=== PATIENT | female | born 1985 | race Two or more races ===

== ENCOUNTER 2020-05-28 14:26 | Outpatient (REF) | payer OTHER, SELFPAY ==
[2020-05-28 14:44] LABS: COVID-19 Test Negative (Negative)
== END 2020-05-28 14:27 | disposition home or self-care (01) ==
LOC: HO.EMPCOV 14:26
PROVIDERS: PCP Internal Medicine; Visit Provider Internal Medicine
DX: Z20.822 Contact with and (suspected) exposure to COVID-19 (principal)
CPT/HCPCS: 36415; 87635; C9803

== ENCOUNTER 2020-07-24 07:57 | Outpatient (REF) | payer OTHER, SELFPAY ==
[2020-07-24 08:15] LABS: COVID-19 Test Negative (Negative)
== END 2020-07-24 07:58 | disposition home or self-care (01) ==
LOC: HO.EMPCOV 07:57
PROVIDERS: Visit Provider Internal Medicine
DX: Z20.822 Contact with and (suspected) exposure to COVID-19 (principal)
CPT/HCPCS: 36415; 87635; C9803

== ENCOUNTER 2021-05-05 11:00 | Outpatient (REF) | payer OTHER, SELFPAY ==
[2021-05-05 12:05] LABS: COVID-19 Test Positive (Negative)
== END 2021-05-05 11:01 | disposition home or self-care (01) ==
LOC: HO.LAB 11:00
PROVIDERS: Visit Provider Internal Medicine
DX: Z20.822 Contact with and (suspected) exposure to COVID-19 (principal)
CPT/HCPCS: 36415; 87635; C9803

== ENCOUNTER → 2021-07-17 08:17 | Outpatient (BNVA) | payer OTHER, SELFPAY | PROVIDERS: PCP Pediatrics; Visit Provider Advanced Practice Midwife | DX: N92.6 Irregular menstruation, unspecified (principal) | CPT/HCPCS: 99202 ==

== ENCOUNTER 2022-03-05 15:01 | Outpatient (REF) | payer OTHER, SELFPAY ==
[2022-03-06 12:17] LABS: Influenza A PCR NEGATIVE (Negative); Influenza B PCR NEGATIVE (Negative); Resp Syncy Virus RNA Qual PCR NEGATIVE (Negative); SARS COV2 PCR INHOUSE NEGATIVE (Negative)
== END 2022-03-05 15:02 | disposition home or self-care (01) ==
LOC: HO.LAB 15:01
PROVIDERS: Visit Provider Family Medicine
DX: Z20.822 Contact with and (suspected) exposure to COVID-19 (principal); R05.9 Cough, unspecified
CPT/HCPCS: 0241U

== ENCOUNTER → 2022-04-21 08:02 | Outpatient (BNVA) | payer OTHER, SELFPAY | PROVIDERS: Visit Provider Advanced Practice Midwife | DX: Z13.89 Encounter for screening for other disorder (principal) ==

== ENCOUNTER 2022-10-28 10:54 | Outpatient (REF) | payer OTHER, SELFPAY | END 2022-10-28 10:55 | disposition home or self-care (01) | LOC: HO.LAB 10:54 | PROVIDERS: Visit Provider Advanced Practice Midwife | DX: N89.8 Other specified noninflammatory disorders of vagina (principal); Z20.2 Contact with and (suspected) exposure to infections with a predominantly sexual mode of transmission | CPT/HCPCS: 99212 ==

== ENCOUNTER 2022-10-28 11:54 | Outpatient (REF) | payer OTHER, SELFPAY ==
[2022-10-28 16:21] LABS: CT PCR NOT DETECTED (Not Detect.); NG PCR NOT DETECTED (Not Detect.)
[2022-10-29 12:53] LABS: BV Int Neg Control Negative (Negative); BV Int Pos Control Positive (Positive)
== END 2022-10-28 11:55 | disposition home or self-care (01) ==
LOC: HO.LNP 11:54
PROVIDERS: Visit Provider Advanced Practice Midwife
DX: Z20.2 Contact with and (suspected) exposure to infections with a predominantly sexual mode of transmission (principal)
CPT/HCPCS: 0353U; 87480; 87510; 87660

== ENCOUNTER 2022-11-04 11:16 | Outpatient (REF) | payer OTHER, SELFPAY ==
[2022-11-04 14:14] LABS: Syphilis Screen Nonreactive (Nonreactive)
[2022-11-06 08:43] LABS: HBsAGNum1 0.51 S/CO (0.00-0.99); HIV AB/AG Nonreactive (Nonreactive); HIV Num 1 0.05 S/CO (0.00-0.99); Hepatitis B Surface Antigen Negative (Negative); ~HepC Num1 0.13 S/CO (0.00-0.79); ~Hepatitis C Antibody Nonreactive (Nonreactive)
== END 2022-11-04 11:17 | disposition home or self-care (01) ==
LOC: HO.10HDL 11:16
PROVIDERS: Visit Provider Advanced Practice Midwife
DX: Z11.3 Encounter for screening for infections with a predominantly sexual mode of transmission (principal)
CPT/HCPCS: 36415; 86780; 86803; 87340; 87389

== ENCOUNTER 2023-07-20 09:45 | Outpatient (AMB) | payer OTHER, SELFPAY ==
[2023-07-20 09:51] VITALS: BP 118/64; BMI 28.1
--- NOTE | 2023-07-20 09:51 | A.OFFVIS_ITS ---
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 She had an Essure placed after all her kids were born at [facility] but she feels like she has been having lots of problems ever since then most especially soon after the placement and she just would like to have those springs removed and have her tubes tied and removed. She has not worried about STDs this year but she would like to get checked she has been with this partner now for 9 months. She thought she had had a Pap smear at the last visit however previous Paps in the last decade were done at [facility] and the last 1 in our system is 2010. Her last period was June 28. [facility] Medical History Varicose vein of leg Acne Hirsutism Encounter for Essure implantation Tremor Scoliosis Asthma Family History Paternal Grandmother Breast CA Maternal Uncle Colon cancer Mother Hyperlipidemia HTN (hypertension) Father Prostate cancer HTN (hypertension) Social History (Updated 07/20/23 @ 09:58 by Micaela Woods MA) Household Members: Significant Other and Children Housing: Apartment Alcohol intake: current Alcohol intake frequency: holidays/special occasions only Patient Tobacco Use Status: Former Tobacco user e-Cigarette/Vaping Use: Currently Using Current occupational status: employed 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 Sexual orientation: Straight/Heterosexual Gender identity: Female Female Reproductive History Menstrual Age of Menarche: 12 Duration of menses: 6-7 days Date of last menstrual period: 06/28/23 control method: none Total pregnancies: 3 Full term: 3 Number of Living Children: 3 Date of last pap smear: 05/13/10 Physical Exam Vital Signs: Last Vital Signs BP 118/64 07/20/23 09:51 BMI result Body Mass Index 28.1 Const General: healthy appearing, comfortable, no acute distress, well developed and alert Nutritional Appearance: average body habitus Orientation/consciousness: patient oriented x3 Limitations: no limitations HEENT Head: Yes normocephalic Neck Neck: Yes normal visual inspection Chest Chest palpation & inspection: normal inspection of the chest Breast/axilla inspection: normal inspection of the breasts and normal inspection of the axillae Breast/axilla palpation: normal palpation of the breasts and normal palpation of the axillae Resp Effort & Inspection: normal respiratory effort GI Inspection: Yes normal to inspection, No Abdominal wall edema and No distended Palpation (GI): Soft to palpation and nontender Other: Vagina pink and moist normal clear discharge vagina multiparous cervix pink smooth mobile nontender and anteverted mobile nontender uterus adnexa nontender not enlarged fair tone with Kegel coached in doing Kegel's. General: Yes bladder normal to palpation External Female Exam: normal external appearance and normal appearance of the urethra Speculum Exam - Vagina: normal appearance of the vagina, normal palpation and normal vaginal discharge Speculum Exam - Cervix: normal appearance of the cervix, normal palpation and nontender Bimanual exam- vagina & uterus: normal bimanual exam, normal palpation, uterine size normal, bladder normal to palpation, consistency normal, normal palpation, uterine mobility normal, uterine shape normal, No Cervical tenderness present, non-tender and no cervical motion tenderness Bimanual Exam- Adnexa, other: normal adnexae, no masses, normal and No adnexal tenderness Neuro General: patient oriented x3 Assessment & Plan Assessment & Plan (1) Screen for sexually transmitted diseases: Code(s): Z11.3 - Encounter for screening for infections with a predominantly sexual mode of transmission (2) Encounter for Essure implantation: Comment: Patient says it was done at [facility] sometime after the of her 14-year-old, and after the Mirena and after the Implanon... Code(s): Z30.2 - Encounter for sterilization (3) Well woman exam with routine gynecological exam: Code(s): Z01.419 - Encounter for gynecological examination (general) (routine) without abnormal findings (4) Cervical cancer screening: Code(s): Z12.4 - Encounter for screening for malignant neoplasm of cervix (5) Uses contraceptive implants for control: Comment: Isamar, desires salpingectomy and removal of essure. Code(s): Z78.9 - Other specified health status Plan -----Discussed in this visit the following: healthy balanced diet, regular and consistent exercise, getting recommended health screens, doing the best she can for her particular health concerns, kegel exercises, pap smear screening and followup recommendations, mammography screening and SBE, normal changes in cycles in her life stage--- .------discussed her concerns re her essure. pt to have a consultation w dr Barry re salpingectomy. rtc 1 yr kegels encouraged as well as exercise. she is trying to find a pcc but needs to change her insurance. Orders: Orders Bacterial Vaginosis Panel Today Z01.419 - Encounter for gynecological examination (general) (routine) without abnormal findings CT NG by PCR Today Z01.419 - Encounter for gynecological examination (general) (routine) without abnormal findings Pap Smear Today Z01.419 - Encounter for gynecological examination (general) (routine) without abnormal findings Coding Level of Care Code Est Pt Prev Care 18-39y(22510) Diagnoses Screen for sexually transmitted diseases Z11.3 Encounter for Essure implantation Z30.2 Well woman exam with routine gynecological exam Z01.419 Cervical cancer screening Z12.4 Uses contraceptive implants for control Z78.9
== END 2023-07-20 10:50 | disposition home or self-care (01) ==
LOC: HO.HWS 09:45
PROVIDERS: Visit Provider Advanced Practice Midwife
DX: Z01.419 Encounter for gynecological examination (general) (routine) without abnormal findings (principal)
CPT/HCPCS: 99395

== ENCOUNTER 2023-07-20 09:45 | Outpatient (REF) | payer OTHER, SELFPAY ==
[2023-07-21 11:26] LABS: CT PCR NOT DETECTED (Not Detect.); NG PCR NOT DETECTED (Not Detect.)
[2023-07-21 13:53] LABS: BV Int Neg Control Negative (Negative)
[2023-07-21 13:54] LABS: BV Int Pos Control Positive (Positive)
[2023-07-28 06:39] LABS: HPV mRNA E6/E7 rflx Not Detected (Not Detected)
== END 2023-07-20 09:46 | disposition home or self-care (01) ==
LOC: HO.LNP 09:45
PROVIDERS: Visit Provider Advanced Practice Midwife
DX: Z01.419 Encounter for gynecological examination (general) (routine) without abnormal findings (principal); Z11.3 Encounter for screening for infections with a predominantly sexual mode of transmission; Z78.9 Other specified health status
CPT/HCPCS: 0353U; 87480; 87510; 87624; 87660; 88142; 99395

== ENCOUNTER 2023-08-30 09:42 | Outpatient (AMB) | payer OTHER, SELFPAY ==
--- NOTE | 2023-08-30 09:45 | MHC.OFFVIS ---
Vital Signs 08/30/23 09:46 Height 5 ft 4 in Weight 160 lb BMI 27.5 Intake Visit Reasons: Tubal Consult Intake Note: Patient here for tubal ligation consult. Patient have 3 children Regulatory And Compliance Technician Required: No Information Interpreted: non-clinical & clinical Accompanied by: Self / Same As Patient Allergies No Known Allergies Allergy (Mild, Verified 08/30/23 09:49) NOT APPLICABLE Is last menstrual period known: Yes Last menstrual period: 08/26/23 HPI Comments Details: Presenting referred from Virgie Eason CNM regarding consultation for Essure removal. The patient had Essure inserted 15 years ago and would like it out because of lot of side effects. 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 Sexual orientation: Straight/Heterosexual Gender identity: Female Female Reproductive History Menstrual Age of Menarche: 12 Date of last menstrual period: 08/26/23 Total pregnancies: 3 Full term: 3 Number of Living Children: 3 Review of Systems Const All systems reviewed & are unremarkable except as noted in HPI and below Reports as per HPI and Reports no additional complaints GI Reports no additional complaints Reports no additional complaints Physical Exam Vital Signs: BMI result Body Mass Index 27.5 Assessment & Plan Assessment & Plan (1) Encounter for removal of Essure: Code(s): Z45.89 - Encounter for adjustment and management of other implanted devices Category: Medical Plan: Discussed with the patient at Essure was pulled out of the marked because of its complication, Essure removal can be done hysteroscopically but could be challenging because of the fibrosis around the cause it will make it difficult to visualize hysteroscopically and are more likely to fracture, another approach is laparoscopic with concomitant salpingectomies to maintain the patient has desired permanent contraception, or salpingostomy with coil extraction, cornuectomy or hysterectomy. Recommended for the patient to seek a 2nd opinion at a tertiary care center where more resources are available and gynecologists with expertise in Essure removal are available. Offered the patient a referral to [facility], the patient would like to call herself for an appointment. All questions answered, the patient verbalized understanding. Instructed the patient to call our office back in case she cannot get in for an appointment so that we will assist in scheduling an appointment, the patient verbalized understanding agreed with the plan. Coding Level of Care Code Est Pt Level 3 (78388) Diagnoses Encounter for removal of Essure Z45.89
[2023-08-30 09:46] VITALS: BMI 27.5
== END 2023-08-30 13:04 | disposition home or self-care (01) ==
PROVIDERS: Visit Provider Obstetrics & Gynecology
DX: Z45.89 Encounter for adjustment and management of other implanted devices (principal)
CPT/HCPCS: 99213

== ENCOUNTER → 2023-08-30 09:42 | Outpatient (BNVA) | payer OTHER, SELFPAY | PROVIDERS: Visit Provider Obstetrics & Gynecology | DX: Z45.89 Encounter for adjustment and management of other implanted devices (principal); Z71.89 Other specified counseling | CPT/HCPCS: 99212 ==

== ENCOUNTER 2024-01-20 13:24 | Outpatient (AMB) | payer OTHER, SELFPAY ==
--- NOTE | 2024-01-20 13:28 | A.OFFVIS_ITS ---
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 He strayed. 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 External Female Exam: normal external appearance and normal appearance of the urethra Speculum Exam - Vagina: normal appearance of the vagina and normal vaginal discharge Speculum Exam - Cervix: normal appearance of the cervix and Cervical os closed Results Reviewed Results Reviewed: Name: Ruben Solano Age/Sex: 38/F Attending: Marybel Eason CNM : 1985 Submitted by: Marybel Eason CNM Copies to: MR #: [id number] Status: DEP REF Collected: 07/20/23 Location: AIDE Received: 07/22/23 Interpretation Satisfactory for evaluation. Moderate inflammation. Negative for intraepithelial lesion or malignancy. HPV mRNA E6/E7: NOT DETECTED This assay detects E6/E7 viral messenger RNA (mRNA) from 14 high-risk HPV types (16, 18, 31, 33, 35, 39, 45, 51, 52, 56, 58, 59, 66, 68) HPV testing performed by [facility], [place], [place]. See reference labor atory portion of the EMR for entire report. Clinical Information LMP: 06/28/23 Previous PAP test: 05/13/10, WNL Material Received ThinPrep-Cervical Electronically Signed By: FRANCISCO Fuller (ASCP) 08/02/23 1316 The Pap Test is a screening procedure with the inherent possibility of both false negative and false positive results. Results should be interpreted in the context of historic and current clinical findings. Reliability of the Pap Test is enhanced by performing the test on a regular repetitive basis. Patient: Ruben Solano Age/Sex: 38/F MR#: [id number] Page 1 of 1 Assessment & Plan Assessment & Plan (1) Screen for sexually transmitted diseases: Code(s): Z11.3 - Encounter for screening for infections with a predominantly sexual mode of transmission Category: Medical (2) Cervical cancer screening: Comment: 07/20/2023 Pap is negative with negative HPV. Code(s): Z12.4 - Encounter for screening for malignant neoplasm of cervix Category: Medical (3) Uses contraceptive implants for control: Comment: Essure, desires salpingectomy and removal of essure. Code(s): Z78.9 - Other specified health status Category: Social Hx Plan Testing done for STIs as requested lab orders placed so she had her lab and get the others information about portal given so she can get online and look up her information but we would call her for anything positive. I also reviewed with her her cycle in detail and signs and symptoms of ovulation her previous LMP was December 12 and then she got her last period on January 10 which made that is cycle 30 days today during the exam as I was removing the speculum clear fertile type mucus started flown from the cervical os today's day 9 of this cycle Education done about signs and symptoms of ovulation and the other changes that occur within the cycle. Given that she is planning to have the Essure removed either laparoscopically or via laparotomy on March 06 at [facility] via [facility] then fertility is not her concern she is going to be having salpingectomy at the same time. However this was for educational purposes additionally because her described symptoms that she has noticed since she had the Essure placed involve hormonal changes and cramping at various times it may or may not be resolved when she has the Essure removed so some discussion about that took place as well. Labs to be done when she goes to the lab we will see her when she needs to be seen. Last Pap smear was negative in July. Orders: Orders CT NG by PCR Today Z11.3 - Encounter for screening for infections with a predominantly sexual mode of transmission Hepatitis B Surface Antigen Today Z11.3 - Encounter for screening for infections with a predominantly sexual mode of transmission, Z12.4 - Encounter for screening for malignant neoplasm of cervix, Z78.9 - Other specified health status Hepatitis C Antibody Today Z11.3 - Encounter for screening for infections with a predominantly sexual mode of transmission, Z12.4 - Encounter for screening for malignant neoplasm of cervix, Z78.9 - Other specified health status Bacterial Vaginosis Panel Today Z11.3 - Encounter for screening for infections with a predominantly sexual mode of transmission HIV Ab/Ag Today Z11.3 - Encounter for screening for infections with a predominantly sexual mode of transmission, Z12.4 - Encounter for screening for malignant neoplasm of cervix, Z78.9 - Other specified health status Syphilis Screen Today Z11.3 - Encounter for screening for infections with a predominantly sexual mode of transmission, Z12.4 - Encounter for screening for malignant neoplasm of cervix, Z78.9 - Other specified health status Coding Level of Care Code Est Pt Level 3 (78211) Diagnoses Screen for sexually transmitted diseases Z11.3 Cervical cancer screening Z12.4 Uses contraceptive implants for control Z78.9
[2024-01-20 13:35] VITALS: BP 126/62; BMI 30.6
== END 2024-01-20 14:06 | disposition home or self-care (01) ==
PROVIDERS: Visit Provider Advanced Practice Midwife
DX: Z11.3 Encounter for screening for infections with a predominantly sexual mode of transmission (principal); Z12.4 Encounter for screening for malignant neoplasm of cervix; Z78.9 Other specified health status
CPT/HCPCS: 99213

== ENCOUNTER 2024-01-20 13:24 | Outpatient (REF) | payer OTHER, SELFPAY ==
[2024-01-21 14:21] LABS: Bacterial Vaginosis PCR NEGATIVE (Negative); Candida Group PCR NOT DETECTED (Not Detect); Candida glab krusei PCR NOT DETECTED (Not Detect); Trichomonas vaginalis PCR NOT DETECTED (Not Detect)
== END 2024-01-20 13:25 | disposition home or self-care (01) ==
LOC: HO.LNP 13:24
PROVIDERS: Visit Provider Advanced Practice Midwife
DX: Z11.3 Encounter for screening for infections with a predominantly sexual mode of transmission (principal); Z12.4 Encounter for screening for malignant neoplasm of cervix
CPT/HCPCS: 0352U; 99212

== ENCOUNTER 2024-01-20 14:30 | Outpatient (REF) | payer OTHER, SELFPAY ==
[2024-01-21 08:15] LABS: Syphilis Screen Nonreactive (Nonreactive)
[2024-01-21 09:01] LABS: HBsAGNum1 0.33 S/CO (0.00-0.99); HIV AB/AG Nonreactive (Nonreactive); HIV Num 1 0.04 S/CO (0.00-0.99); Hepatitis B Surface Antigen Negative (Negative); ~Hepatitis C Antibody Nonreactive (Nonreactive)
[2024-01-21 12:15] LABS: CT PCR NOT DETECTED (Not Detect.); NG PCR NOT DETECTED (Not Detect.)
== END 2024-01-20 14:31 | disposition home or self-care (01) ==
LOC: HO.HHCL 14:30
PROVIDERS: Visit Provider Advanced Practice Midwife
DX: Z11.3 Encounter for screening for infections with a predominantly sexual mode of transmission (principal); Z78.9 Other specified health status; Z12.4 Encounter for screening for malignant neoplasm of cervix
CPT/HCPCS: 36415; 86780; 86803; 87340; 87389; 87491; 87591

== ENCOUNTER 2024-03-24 09:13 | Outpatient (REF) | payer OTHER, SELFPAY ==
[2024-03-24 09:47] LABS: MANUAL DIFF FLAG NO
[2024-03-24 10:36] LABS: Basophils Absolute Auto 0.1 X10*3/uL (0.0-0.2); Basophils Percent Auto 0.8 % (0-2); Eosinophils Absolute Auto 0.1 X10*3/uL (0.0-0.4); Eosinophils Percent Auto 1.5 % (0-4); Hematocrit 39.2 % (37.0-47.0); Hemoglobin 12.8 g/dl (12.0-16.0); Imm Gran Abs Auto 0.02 X10*3/uL (0.00-0.03); Imm Gran Pct Auto 0.3 % (0.0-0.4); Lymphocytes Absolute Auto 1.6 X10*3/uL (1.2-4.9); Lymphocytes Percent Auto 23.8 % (20-40); Mean Corpuscular HGB Conc 32.7 g/dl (31.0-35.0); Mean Corpuscular Hemoglobin 30.5 pg (27.0-33.0); Mean Corpuscular Volume 93.6 fL (80.0-98.0); Mean Platelet Volume 10.8 fL (9.4-12.3); Monocytes Absolute Auto 0.6 X10*3/uL (0.1-1.2); Monocytes Percent Auto 8.3 % (2-11); Neutrophils Absolute Auto 4.3 x10*3/uL (2.0-8.3); Neutrophils Percent Auto 65.3 % (45-73); Platelet Count 272 X10*3/uL (160-400); Red Blood Count 4.19 X10*6/uL (4.20-5.50); Red Cell Distribution Width 12.5 % (11.0-16.0); White Blood Count 6.6 X10*3/uL (4.8-10.8)
[2024-03-24 11:13] LABS: Alanine Aminotransferase 19 U/L (0-31); Albumin Level 4.1 g/dL (3.5-5.0); Alkaline Phosphatase 80 U/L (39-117); Anion Gap 11 (12-20); Aspartate Amino Transferase 17 U/L (5-31); Bilirubin Total 0.4 mg/dL (0.0-1.0); Blood Urea Nitrogen 16 mg/dL (9-16); Calcium 9.4 mg/dL (8.4-10.2); Carbon Dioxide 26 mmol/L (22-29); Chloride 107 mmol/L (96-108); Estimated Glomerular Filt Rate > 60; Glucose Random 101 mg/dL (60-115); Potassium 4.4 mmol/L (3.3-5.1); Sodium 140 mmol/L (135-145); Total Protein 7.3 g/dL (6.5-8.0)
[2024-03-24 11:33] LABS: Erythrocyte Sedimentation Rate 16 MM/HR (0-20)
== END 2024-03-24 09:14 | disposition home or self-care (01) ==
LOC: HO.LAB 09:13
PROVIDERS: PCP Internal Medicine Medical Oncology; Visit Provider Internal Medicine Medical Oncology
DX: L03.90 Cellulitis, unspecified (principal); T81.49XA Infection following a procedure, other surgical site, initial encounter
CPT/HCPCS: 36415; 80053; 85025; 85652

== ENCOUNTER 2025-03-28 12:17 | Outpatient (AMB) | payer OTHER, SELFPAY ==
--- OUTSIDE RECORDS SUMMARY | 2022-06-05 03:30 | XMS_ITS | Continuity of Care Document ---
Author Organization [facility] Address [address] [place] [address] [address] [place] [id number] Phone Care Team Providers Care Die Maker Trim Name Role Phone Gelacio Jenkins MD, FACS, RVT Unavailable Unavailable Allergies, Adverse Reactions, Alerts Substance Reaction Status Criticality No Known Allergies Active No Inform ation Medications Medication Instructions Dosage Effective Dates (start - stop) Status Comments spironolactone 50 mg tablet - Active ProAir HFA 90 mcg/actuation aerosol inhaler - Active triamcinolone acetonide 0.025 % lotion - Active Procedures Procedure Date Office/Outpt E&M Established 25 Mins Jun Advance Directives Directive Yes / No Effective Date File Name No Information Encounters Encounter Description Practice Location Reason(s) For Visit Diagnoses Date Provider Providers Copied on Encounter Office/Outpt E&M Established 25 Mins [facility], [address] [place] [address] [address], [id number], tel:[phone] R [facility] Venous insufficiency (chronic) (peripheral)Daren dy mass index (BMI) 29.0-29.9, adult 3 Willy BURNS FACS UMESH Sneed. [address] [address], [place], [address], [place]. tel:[phone] Referring Provider: Angeles Chadwick, [address] [place], [address]. tel:[phone] Family History Family Member Type Diagnosis Age At Onset No Information Payers Payer name Insurance type Covered alliance party ID Christi walls(s) [facility] [id number] Social History Type Description Quantity Date Captured Comments Alcohol Use Details Caffeine Use Details Unknown Tobacco Use Status Ex-cigarette smoker 023 Smoking Status Former smoker Smoking Tobacco Use Details Cigarette: Age Stopped: 25 Cigarette: No Details Available Sex Female Vital Signs Date / Time: Height Weight BMI Pulse Rate Blood Pressure Temperature Respiratory Rate Body Surface Area Head Circumference Head Circ. Percentile Wt./Jose Juan. Percentile BMI percentile Pulse Ox Inhaled Ox 8:50 AM 64.00 in 78.925 kg (174.00 lbs) 29.8 6 kg/m eter (2) 1.89 meter(2) Chief Complaint And Reason For Visit No Information Reason For Referral Reason For Referral No Information Plan Of Treatment Date Type Action Status Goal Tobacco cessation counseling completed Goal Diet education completed History Of Present Illness Encounter Date Complaint History Of Prese nt Illness No Information Functional Status Date Functional Assessmen t No Information Instructions Date Instruction Additional Infor mation Diet education Related to Body mass index [BMI] 29.0-29.9, adult Giving Encouragement to Exercise Related to Body mass index [BMI] 29.0-29.9, adult Assessments Type Assessment Date assessment Venous insufficiency (chronic) ( peripheral) assessment Body mass index [BMI] 29.0-29.9, adult Patient Care Teams Name Effective Dates (start - stop) Status Members No Information
--- NOTE | 2025-03-28 12:50 | A.OFFVIS_ITS ---
Vital Signs 03/28/25 12:56 Height 5 ft 4 in Weight 177 lb BMI 30.4 BP 120/70 Intake Visit Reasons: Left breast check Prosthetics Technician: Prosthetics Technician Present (Leslie) Accompanied by: Self / Same As Patient Allergies No Known Allergies Allergy (Mild, Verified 03/28/25 12:54) NOT APPLICABLE Medication List - Last Reconciled 03/28/25 by Marybel Eason CNM albuterol sulfate 90 mcg/actuation (Ventolin HFA) 2 puffs inhalation Q4H Is last menstrual period known: Yes Last menstrual period: 03/16/25 Post menopausal: No Patient : No HPI HPI Left breast check: Details: Patient discovered a sore swollen bump on her nipple yesterday when her hand went over it in the shower. It was painful and she popped it it has scabbed over. In it feels much better. She is sexually active in sometimes notes that after her sex on her nipples there is a bad odor there is no other les ion no other exudate no masses no peau d'orange no other suspicion for anything other than a folliculitis that may have had some source of bacteria entry and that has now been popped and is healing. [facility] Medical History Varicose vein of leg Acne Hirsutism Encounter for Essure implantation Tremor Scoliosis Asthma Family History Paternal Grandmother Breast CA Maternal Uncle Colon cancer Mother Hyperlipidemia HTN (hypertension) Father Prostate cancer HTN (hypertension) Social History Household Members: Significant Other and Children Housing: Apartment Alcohol intake: current Alcohol intake frequency: holidays/special occasions only Patient Tobacco Use Status: Former Tobacco user e-Cigarette/Vaping Use: Currently Using Patient : No Current occupational status: employed 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 Sexual orientation: Straight/Heterosexual Gender identity: Female Female Reproductive History Menstrual Age of Menarche: 12 Duration of menses: 6-7 days Date of last menstrual period: 03/16/25 control method: none and permanent sterilization Total pregnancies: 3 Full term: 3 Date of last pap smear: 07/20/23 (negative pap smear, negative hpv ) Physical Exam Vital Signs: Last Vital Signs BP 120/70 03/28/25 12:56 BMI result Body Mass Index 30.4 Assessment & Plan Assessment & Plan (1) Breast cancer screening: Code(s): Z12.39 - Encounter for other screening for malignant neoplasm of breast Category: Medical (2) Folliculitis: Comment: At tip of left nipple that she popped and is healing... Code(s): L73.9 - Follicular disorder, unspecified Category: Medical (3) H/O bilateral salpingectomy: Comment: Had Essure removed, and bilateral salpingectomy at [facility] this year is happy about it. Code(s): Z90.79 - Acquired absence of other genital organ(s) Category: Surgical Plan Patient discovered a sore swollen bump on her nipple yesterday when her hand went over it in the shower. It was painful and she popped it it has scabbed over. In it feels much better. She is sexually active in sometimes notes that after her sex on her nipples there is a bad odor there is no other lesion no other exudate no masses no peau d'orange no other suspicion for anything other than a folliculitis that may have had some source of bacteria entry and that has now been popped and is healing. Discussed how bacteria on our skin and in her mouths can enter follicles and cause infectious processes and discussed hygiene and oral hygiene that may fa cilitate this prevention. I do not palpate any other mass or lesion and there is no other area of concern and it is already scabbed over and non inflamed and healing. I am going to order her screening mammogram as her birthday is in 2-1/2 weeks She sees her primary care provider and we will be seeing them for her annual exam in April and we will be getting all source of screening blood work at that time she said she had not been seen by a primary care provider since COVID times. She has a history of anemia she does appear somewhat pale but she also tells me on questioning she did not sleep last night because she was worried about her breast. She had Essure removal at [facility] a couple of months ago and they removed her tubes so she is very happy she said that the surgeon who took out the Essure told her it had been flattened and maybe that is what was causing her pain for the time that it had been in. She is happy that it is out. We will see her for her annual exam and for any other difficulty PRN she will be getting blood work with her primary care provider soon. Orders: Orders MM tomosynthesis screening BI Today L73.9 - Follicular disorder, unspecified, Z12.31 - Encounter for screening mammogram for malignant neoplasm of breast, Z12.39 - Encounter for other screening for malignant neoplasm of breast, Z90.79 - Acquired absence of other genital organ(s) Coding Level of Care Code Est Pt Level 3 (54818) Diagnoses Breast cancer screening Z12.39 Folliculitis L73.9 H/O bilateral salpingectomy Z90.79
[2025-03-28 12:56] VITALS: BP 120/70; BMI 30.4
--- OUTSIDE RECORDS SUMMARY | 2025-03-28 15:21 | XMS_ITS ---
Author Name [facility] Organization Unknown Care Team Organization Name Specialty Phone Email Start Date End Da te [facility] 03/10/20222023
== END 2025-03-28 13:45 | disposition home or self-care (01) ==
LOC: HO.HWSM 12:17
PROVIDERS: PCP Internal Medicine Medical Oncology; Visit Provider Advanced Practice Midwife
DX: Z12.39 Encounter for other screening for malignant neoplasm of breast (principal); L73.9 Follicular disorder, unspecified; Z90.79 Acquired absence of other genital organ(s)
CPT/HCPCS: 99213

== ENCOUNTER → 2025-03-28 12:17 | Outpatient (BNVA) | payer OTHER, SELFPAY | PROVIDERS: PCP Internal Medicine Medical Oncology; Visit Provider Advanced Practice Midwife | DX: Z12.39 Encounter for other screening for malignant neoplasm of breast (principal); L73.9 Follicular disorder, unspecified; Z90.79 Acquired absence of other genital organ(s) | CPT/HCPCS: 99212 ==